=== PATIENT | male | born 1960 | race Caucasian/White ===

== ENCOUNTER 2021-12-13 13:45 | Emergency (ER) | payer OTHER ==
--- NOTE | 2021-12-13 14:46 | PHYS DOC ---
Past Medical History Past Medical History: Hypertension Past Medical History Limited secondary to cardiopulmonary arrest Past Surgical History Limited secondary to cardiopulmonary arrest Smoking Status: Current Every Day Smoker Social History Limited secondary to cardiopulmonary arrest General Adult EDM: Chief Complaint: CPR/FULL ARREST HPI: HPI: 60-year-old male presents via EMS in cardiopulmonary arrest. EMS was called after patient spouse found him unresponsive and without a pulse outside on their driveway after he was shoveling snow. EMS reports patient was last seen by spouse 10 minutes prior to them being called. EMS estimates being called around 1300. Upon arrival EMS reports patient in asystole. ACLS protocol initiated with 5 rounds of epinephrine provided and a Igel airway placed. During this period of time there was no change in rhythm nor was there any return of spontaneous circulation. EMS reports Accu-Chek of 89. After discussion with patient's spouse, she reports he does have a history of hypertension and is a smoker and has a strong family history of cardiac disease. History of present illness limited secondary to cardiopulmonary arrest. Review of Systems: Review of Systems: Review of systems limited secondary to cardiopulmonary arrest. Heart Score: C/O Chest Pain: N/A Physical Exam: PE: Constitutional: Unresponsive, Deo device in place, vomitus to face and neck HENT: Normocephalic, atraumatic, Igel in place Eyes: Pupils dilated and nonreactive, conjunctiva normal, no discharge Neck: No crepitance or signs of trauma, supple Lungs & Thorax: Artificial respirations with bag valve mask; coarse breath sounds Abdomen: Distended, no hernias noted Skin: Cold, no erythema, no rash Extremities: No tenderness, ROM intact, no edema Neurologic: GCS 3, limited EKG: EKG: [] Radiology/Procedures: Radiology/Procedures: [] Course & Med Decision Making: Course & Med Decision Making Patient presents status post cardiopulmonary arrest. Spouse found patient unresponsive and pulseless after he was shoveling snow outside. Approximate time via EMS call at 1300. Blood sugar 89 in route. EMS initiated ACLS with 5 rounds of epinephrine given and an I gel airway placed. ACLS continued with additional 5 rounds of epinephrine. Continue to use Deo mechanical compression device. Airway further secured with intubation under glide scope utilization. Patient continued with asystole and no return of spontaneous circulation. Time of called at 1358 after confirmation of no cardiac activity on bedside ultrasound. Discussed with family members regarding, who acknowledge understanding. Discussed case with Dr. Plascencia (PCP) who is in agreement with signing certificate. Dragon Disclaimer: Dragon Disclaimer: This electronic medical record was generated, in whole or in part, using a voice recognition dictation system. Intubation Intubation : Time of Intubation: 13:55 Intubation Method: orotracheal Tube Size (cm): 8.0 Breath Sounds after Intubation: equal Intubation Complications: no complications Post Intubation Xray: No Progress Emergent consent utilized. Time out performed. Hand hygiene utilized. [place] scope video laryngoscopy performed. Significant amount of vomitus noted in pharynx that was suctioned with Yankauer catheter. Successful placement of 8.0 cuffed ET tube placed and secured in place at 23 cm at teeth. Inline suction performed. End-tidal CO2 positive color change and equal chest breath sounds noted. Patient tolerated procedure well. Departure Departure Impression: Primary Impression: Cardiopulmonary arrest Disposition: 20 Condition: Critical Care Time Critical care time was 30 minutes which includes time at bedside, spent in discussion of patient's care with specialists and/or family members, with interpretation of laboratory and/or radiological studies and is exclusive of procedures. ROLANDO JANG DO Dec 13, 2021 14:46
== END 2021-12-13 20:49 ==
LOC: ER 13:45
DX: I46.9 Cardiac arrest, cause unspecified (principal); F17.200 Nicotine dependence, unspecified, uncomplicated; I10 Essential (primary) hypertension
CPT/HCPCS: 31500; 92950; 99291-25